=== PATIENT | female | born 2000 | race Caucasian/White ===

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

== ENCOUNTER → 2020-09-29 | Outpatient (CLI) | payer OTHER | LOC: LAB 11:36 → LAB SHORT 11:36 | PROVIDERS: Advanced Practice Midwife | DX: Z01.419 Encounter for gynecological examination (general) (routine) without abnormal findings (principal) | CPT/HCPCS: G0123 ==

== ENCOUNTER → 2024-02-12 | Outpatient (CLI) | payer OTHER ==
[~2024-02-12] MED LIST changes: +PHENA200 PO
== END ==
LOC: LAB 18:32 → LAB SHORT 18:32
PROVIDERS: Advanced Practice Midwife
DX: Z01.419 Encounter for gynecological examination (general) (routine) without abnormal findings (principal)
CPT/HCPCS: G0123

== ENCOUNTER → 2024-02-21 | Outpatient (CLI) | payer OTHER | LOC: LAB 10:16 → LAB SHORT 10:16 | DX: R30.0 Dysuria (principal) | CPT/HCPCS: 87077; 87086; 87186 ==